=== PATIENT | female | born 1935 | race Caucasian/White ===

== ENCOUNTER 2017-10-10 18:57 | Inpatient (IN) | payer MEDICARE ==
[~2017-10-10] VITALS: Ht 152.4 cm; Wt 60.2 kg
[~2017-10-10 18:57] MED LIST: ATEN50TA PO; FURO20TA4 PO; GABA-529 PO; LOVA40TA2 PO; PANT40TA25 PO; VALS160T28 PO
[2017-10-10] MEDS ORDERED: ONDANSETRON HCL 4 MG/2 ML VIAL ONE (19:38)
[2017-10-10] MEDS ORDERED: MORPHINE SULFATE 2 MG/ML 1ML SYG ONE ×2 (19:39→23:12)
[2017-10-10] MEDS ORDERED: SODIUM CHLORIDE 0.9% 1000ML 1,000 ML IV ONE (19:39)
[2017-10-10 20:29] LABS: BASOPHILS % (AUTO) 0.5 % (0.0-5.0); EOSINOPHILS % (AUTO) 1.3 % (0.0-8.0); HEMATOCRIT 39.1 % (36-48); LYMPHOCYTES % (AUTO) 26.9 % (21.0-51.0); MEAN CORPUSCULAR HEMOGLOBIN 32.7 pg (27.0-33.0); MEAN CORPUSCULAR HGB CONC 33.8 g/dL (32.0-36.0); MEAN CORPUSCULAR VOLUME 96.7 fL (79-99); MONOCYTES % (AUTO) 13.4 % (3.0-13.0); NEUTROPHILS % (AUTO) 57.9 % (40.0-77.0); NUCLEATED RED BLOOD CELLS 0.1 % (0.0-0.19); PLATELET COUNT (AUTO) 190 K/uL (130-400); RED BLOOD CELL COUNT(AUTO) 4.05 MIL/uL (4.00-5.50); RED CELL DISTRIBUTION WIDTH 14.7 % (11.0-15.5); WHITE BLOOD COUNT (AUTO) 12.1 K/uL (4.8-10.8)
[2017-10-10 20:43] LABS: APPEARANCE,URINE Clear (CLEAR); BILIRUBIN,URINE Negative (NEGATIVE); COLOR,URINE Yellow (YELLOW); GLUCOSE, URINE (UA) Negative (NEGATIVE); KETONES,URINE Negative (NEGATIVE); LEUKOCYTE ESTERASE ,URINE Negative (NEGATIVE); NITRATE,URINE Negative (NEGATIVE); OCCULT BLOOD,URINE Negative (NEGATIVE); PROTEIN,URINE Negative (NEGATIVE); UROBILINOGEN,URINE 0.2 mg/dL (0.2-1.0)
[2017-10-10 20:44] LABS: CREATININE 1.9 mg/dL (0.5-1.5); INR 0.99 (0.85-1.15); POTASSIUM 3.9 mmol/L (3.5-5.1); PROTHROMBIN TIME 10.4 SEC (9.6-11.6)
[2017-10-10 20:49] LABS: ALBUMIN 2.9 g/dL (3.5-5.0); BILIRUBIN,TOTAL 0.7 mg/dL (0.2-1.0)
[2017-10-11] MEDS: ENOXAPARIN SODIUM 30 MG/0.3 ML SQ SCH (09:00)
[2017-10-11 09:45] VITALS: BP 143/86
[2017-10-11] MEDS ORDERED: SODIUM CHLORIDE 0.9% 10 ML VIAL IVP PRN (10:15)
[2017-10-11] MEDS ORDERED: ACET1TAB27 PO (10:27)
[2017-10-11 11:00] VITALS: BP 151/81
[2017-10-11] MEDS ORDERED: ENOXAPARIN SODIUM 30 MG/0.3 ML SQ ONE (11:02)
[2017-10-11] MEDS: TRAMADOL HCL 50 MG TABLET PO PRN ×3 (11:11→23:16)
[2017-10-11 18:00] VITALS: BP 146/76
[2017-10-11 19:20] VITALS: BP 136/83
[2017-10-11 23:49] VITALS: BP 143/74
[2017-10-12 03:55] VITALS: BP 133/79
[2017-10-12] MEDS: TRAMADOL HCL 50 MG TABLET PO PRN (06:21)
[2017-10-12] MEDS: FAMOTIDINE 20MG TAB 20 MG TAB PO SCH (09:48)
[2017-10-12 09:58] VITALS: BP 151/87
[2017-10-12 13:27] VITALS: BP 154/85
[2017-10-12] MEDS ORDERED: ACETAMINOPHEN-CODEINE 300/30MG TAB PO PRN (14:45)
[2017-10-12] MEDS: ACETAMINOPHEN-CODEINE 300/30MG TAB PO PRN ×2 (16:33→23:18)
[2017-10-12 18:32] VITALS: BP 178/99
[2017-10-12 19:00] VITALS: BP 156/99
[2017-10-12] MEDS: ATENOLOL 50 MG TABLET PO SCH (21:00)
[2017-10-13] VITALS (8 sets, daily range): BP systolic 134–183; BP diastolic 50–102
[2017-10-13] MEDS: HYDRALAZINE HCL 20 MG/ML VIAL IV SCH ×2 (01:00→22:03)
[2017-10-13] MEDS ORDERED: HYDRALAZINE HCL 20 MG/ML VIAL ONE (01:20)
[2017-10-13 05:03] LABS: HEMATOCRIT 37.5 % (36-48); MEAN CORPUSCULAR HEMOGLOBIN 32.8 pg (27.0-33.0); MEAN CORPUSCULAR HGB CONC 34.5 g/dL (32.0-36.0); MEAN CORPUSCULAR VOLUME 95.2 fL (79-99); PLATELET COUNT (AUTO) 181 K/uL (130-400); RED BLOOD CELL COUNT(AUTO) 3.93 MIL/uL (4.00-5.50); RED CELL DISTRIBUTION WIDTH 14.5 % (11.0-15.5); WHITE BLOOD COUNT (AUTO) 8.6 K/uL (4.8-10.8)
[2017-10-13 05:30] LABS: BAND NEUTROPHILS % (MANUAL) 15 % (0-2); BASOPHILS % (MANUAL) 2 % (0-2); EOSINOPHILS % (MANUAL) 1 % (1-6); LYMPHOCYTES % (MANUAL) 14 % (22-44); MAN.DIFF COMMENT-IMPRESSION MANUAL DIFFERENTIAL; MONOCYTES % (MANUAL) 9 % (2-9); PLATELET MORPHOLOGY COMMENT ADEQUATE; SEGMENTED NEUTROPHILS % 59 % (40-70)
[2017-10-13 05:37] LABS: CREATININE 1.6 mg/dL (0.5-1.5); POTASSIUM 3.2 mmol/L (3.5-5.1)
[2017-10-13] MEDS: ACETAMINOPHEN-CODEINE 300/30MG TAB PO PRN ×3 (06:34→18:37)
[2017-10-13] MEDS: ATORVASTATIN CALCIUM 10 MG TABLET PO SCH (08:41)
[2017-10-13] MEDS: FAMOTIDINE 20MG TAB 20 MG TAB PO SCH (08:41)
[2017-10-13] MEDS: ATENOLOL 50 MG TABLET PO SCH ×2 (08:42→21:14)
[2017-10-13] MEDS: FUROSEMIDE 20 MG TABLET PO SCH (08:42)
[2017-10-13] MEDS: ENOXAPARIN SODIUM 30 MG/0.3 ML SQ SCH (08:43)
[2017-10-13] MEDS ORDERED: ONDANSETRON HCL 4 MG/2 ML VIAL IVP PRN (18:15)
[2017-10-13] MEDS ORDERED: ONDANSETRON HCL 4 MG/2 ML VIAL ONE (18:34)
[2017-10-13] MEDS ORDERED: LIDOCAINE HCL-MPF 1% 2ML VIAL IVP PRN (19:30)
[2017-10-13] MEDS ORDERED: POTASSIUM CHLORIDE 10% ELIXIR 20 MEQ/15 ML UDCUP PO PRN (19:30)
[2017-10-13] MEDS ORDERED: POTASSIUM CHLORIDE 20MEQ/100ML 100 ML IV PRN (19:30)
[2017-10-14] MEDS: MORPHINE SULFATE 2 MG/ML 1ML SYG IVP PRN ×2 (01:10→13:00)
[2017-10-14] MEDS: POTASSIUM CHLORIDE 20 MEQ ERTAB PO PRN ×2 (03:05→05:38)
[2017-10-14 04:12] VITALS: BP 155/91
[2017-10-14 08:14] VITALS: BP 149/82
[2017-10-14] MEDS: ATORVASTATIN CALCIUM 10 MG TABLET PO SCH (09:22)
[2017-10-14] MEDS: ATENOLOL 50 MG TABLET PO SCH (09:22)
[2017-10-14] MEDS: FUROSEMIDE 20 MG TABLET PO SCH (09:22)
[2017-10-14] MEDS: FAMOTIDINE 20MG TAB 20 MG TAB PO SCH (09:23)
[2017-10-14] MEDS: ACETAMINOPHEN-CODEINE 300/30MG TAB PO PRN ×2 (09:24→17:06)
[2017-10-14] MEDS: ENOXAPARIN SODIUM 30 MG/0.3 ML SQ SCH (09:24)
[2017-10-14 11:26] VITALS: BP 138/77
[2017-10-14] MEDS ORDERED: DEXAMETHASONE SOD PHOSPHATE 4 MG/ML 1ML VIAL IVP SCH (12:00)
== END 2017-10-14 19:10 | DRG 552 ==
LOC: EDH 18:57 → OBSVTOIN 10-11 08:12 → EDHIP 10-11 08:12 → 3DH 10-11 09:49
PROVIDERS: ADMIT Internal Medicine; ATTEND Internal Medicine
DX: M54.5 Low back pain (principal); I50.32 Chronic diastolic (congestive) heart failure; W19.XXXA Unspecified fall, initial encounter; E78.5 Hyperlipidemia, unspecified; G89.4 Chronic pain syndrome; K21.9 Gastro-esophageal reflux disease without esophagitis; M54.10 Radiculopathy, site unspecified; N18.9 Chronic kidney disease, unspecified; Z96.659 Presence of unspecified artificial knee joint; Z90.710 Acquired absence of both cervix and uterus; Y93.89 Activity, other specified; Y92.89 Other specified places as the place of occurrence of the external cause; Y99.8 Other external cause status
CPT/HCPCS: 36415; 73700; 74176; 80048; 80053; 81003; 84484; 85025; 85610; 85730; 93005; 96374; 96375; 96376; J0360; J1100; J1650; J2405; J7030

== ENCOUNTER 2017-12-29 09:44 | Emergency (ER) | payer MEDICARE ==
[~2017-12-29 09:44] MED LIST changes: +ACET1TAB27 PO; -GABA-529 PO; -PANT40TA25 PO; -VALS160T28 PO
== END 2017-12-29 10:21 | disposition home or self-care (01) ==
LOC: EDH 09:44
DX: M43.06 Spondylolysis, lumbar region (principal); M54.31 Sciatica, right side; I13.0 Hypertensive heart and chronic kidney disease with heart failure and stage 1 through stage 4 chronic kidney disease, or unspecified chronic kidney disease; N18.9 Chronic kidney disease, unspecified; I50.9 Heart failure, unspecified
CPT/HCPCS: 99281

== ENCOUNTER → 2020-04-23 | Outpatient (CLI) | payer MEDICARE | END | disposition home or self-care (01) | LOC: SHCH 09:16 | PROVIDERS: ATTEND Internal Medicine Cardiovascular Disease | DX: I50.22 Chronic systolic (congestive) heart failure (principal); I35.0 Nonrheumatic aortic (valve) stenosis | CPT/HCPCS: 78481; A9512 ==